=== PATIENT | male | born 1980 ===

== ENCOUNTER 2024-08-30 13:34 | Emergency (ER) | payer MEDICAID, SELFPAY ==
--- NOTE | ~2024-08-30 | XR_ITS ---
EXAMINATION: XR FOOT, RIGHT CLINICAL INFORMATION: medial tenderness COMPARISON: No prior. TECHNIQUE: AP, lateral, and oblique views of the right foot. FINDINGS: No fracture, dislocation, or suspicious bone lesion. Normal bone mineralization. Normal alignment. Joint spaces are preserved. Mild dorsal spurring of the intertarsal joints. Mild medial soft tissue swelling, particularly involving the midfoot. No soft tissue gas. XR/XR foot RT min 3V IMPRESSION: 1. No acute bony abnormalities. 2. Mild medial soft tissue swelling particularly overlying the midfoot. Electronically signed by: Minh Gay MD 08/30/2024 02:36 PM EDT
--- NOTE | ~2024-08-30 | XR_ITS ---
EXAMINATION: XR ANKLE, RIGHT CLINICAL INFORMATION: medial swelling and tenderness COMPARISON: None available. TECHNIQUE: AP, lateral, and mortise views of the right ankle. FINDINGS: Malposition of the AP and oblique views. No acute cortical disruption or malalignment. No lytic or blastic lesion. No subcutaneous emphysema. XR/XR ankle RT 2V IMPRESSION: No acute fracture or dislocation. Negative exam.] Electronically signed by: George Downs MD 08/30/2024 02:22 PM EDT
[2024-08-30 13:38] VITALS: BP 130/86; PULSE 83; RESP 20; TEMP 37; O2SAT 96; BMI 33.1
--- NOTE | 2024-08-30 13:40 | ED.GENADULT ---
HPI - General Adult General Chief complaint: Extremity Injury, Lower Stated complaint: twisted r ankle Time Seen by Provider: 08/30/24 14:07 Source: patient, RN notes reviewed and old records reviewed Mode of arrival: ambulatory Limitations: no limitations History of Present Illness ED Provider: Mae HPI narrative: Patient is a 44-year-old male presenting with complaint of right foot and ankle pain after slipping while walking down a hill by his house yesterday. Able to bear weight. Pain and swelling to medial foot and ankle. Denies numbness or tingling. complaint: ankle pain Onset (ago): day(s) Related Data Allergies Allergy/AdvReac Type Severity Reaction Status Date / Time MUSCLE RELAXER Allergy Unknown RASH Uncoded 08/30/24 13:40 Review of Systems Review of Systems: As per HPI Yes all other systems are reviewed and are negative Constitutional: Constitutional: Reports as per HPI Physical Exam ED Vital Signs: Vital Signs - 24 hr 08/30/24 13:38 Temperature 98.6 F Pulse Rate 83 Respiratory Rate 20 Blood Pressure 130/86 Pulse Oximetry 96 Oxygen Delivery Method Room Air BMI result Body Mass Index 33.1 Vital signs have been reviewed and appear to be correct. Blood pressure normal. Heart rate normal. Respiratory rate normal. Temperature normal. Oxygen saturation normal. Const General: cooperative, healthy appearing and no acute distress Orientation/consciousness: oriented to person, oriented to place, oriented to time and patient oriented x3 Limitations: no limitations HENMT Head: Yes normocephalic and Yes atraumatic Ears: external ears normal General nose exam: Normal external nose present Face and sinus: Yes face symmetric Mouth: oropharynx normal and moist mucous membranes Throat: Yes uvula midline Eyes Pupils: Equal, round and reactive pupils present Neck Neck: Yes normal visual inspection and Yes supple Resp Effort & Inspection: normal respiratory effort and able to speak in complete sentences Auscultation: clear to auscultation bilaterally Cardio Rate: regular rate Rhythm: regular rhythm Heart sounds: S1 normal heart sound present and S2 normal heart sound present GI Palpation (GI): Soft to palpation and nontender Auscultation: normoactive bowel sounds General: Yes no CVA tenderness Back/Spine/Pelvis Back: no CVA tenderness Skin General skin exam: elasticity normal and turgor normal Neuro General: oriented to person, oriented to place, oriented to time, patient oriented x3, moves all extremities, no focal motor deficits and CN's II-XI intact bilaterally Cranial nerves: Yes Equal, round and reactive pupils present Cognition (Neuro): normal cognition Extrem General: Yes full ROM, Yes no pedal edema and Yes no calf tenderness Right lower extremity: ankle Details: tenderness Location: of the medial malleolus, swelling Details: medially and normal ROM; no unusual warmth and no ecchymosis and foot Details: normal capillary refill, tenderness Location: of the dorsal foot Location: medially, toes with normal ROM and vascular exam Details: dorsalis pedis pulse present, posterior tibial pulse present and normal capillary refill; no ecchymosis Psych Mental Status: mental status grossly normal Affect: normal affect Thought process: Normal thought process present Course Course Course Narrative: This is a rapid medical exam performed by Leeanna Wall NP: Additional HPI, ROS, PE not included below will be deferred to primary provider. Patient is a 44-year-old male presenting with complaint of right foot and ankle pain after slipping while walking down a hill by his house yesterday. Able to bear weight. Plan: xrays Medical Decision Making Medical Decision Making [facility] Narrative: Patient is a 44-year-old male presenting with complaint of right foot and ankle pain after slipping while walking down a hill by his house yesterday. On exam patient is awake, A+Ox3, VS WNL, afebrile, normal neurological exam without focal deficits, physical exam findings as above. Given reported symptoms and physical exam findings, initial differential includes but is not limited to strain, sprain, fracture, dislocation. X-ray notable for no acute fracture to right foot or ankle. My interpretation is in agreement with the radiologist's interpretation. Results discussed with patient and all questions answered. Patient placed in air splint, advised Tylenol and ibuprofen as needed for pain, elevate foot while at rest, ice intermittently. Will refer to ortho for ongoing symptoms. Return precautions discussed. Patient verbalized understanding of and agreement with plan. Differential Diagnosis Differential Diagnoses: The differential diagnosis associated with the presentation includes As per MDM Admission/Observation Consideration of admission/observation: Escalation of care including admission/observation considered Patient would have been admitted to the hospital had their work up had any findings where hospital admission was appropriate and their clinical presentation warranted hospital admission. Independent Interpretation I performed an independent interpretation of an: Plain X-Ray Interpretation: No acute fracture right foot or ankle Radiology Impression Discussion of test interpretation with radiology: I have reviewed the radiologist's reading. Radiologist Impression: XR/XR ankle RT 2V IMPRESSION: No acute fracture or dislocation. Negative exam.] XR/XR foot RT min 3V IMPRESSION: 1. No acute bony abnormalities. 2. Mild medial soft tissue swelling particularly overlying the midfoot. External Record Review External record reviewed: Inpatient record, Office record and Outpatient record Discharge Plan Discharge Clinical Impression: Right ankle sprain Patient Disposition: Home, Self-Care Instructions: Ankle Sprain (DC), Ankle Stirrup Splint (ED), R.I.C.E. Treatment (ED) Additional Instructions: You have been evaluated in the emergency department today for ankle pain. Your evaluation did not find evidence of medical conditions requiring emergent intervention at this time. We have provided a splint for you to use while your ankle heals. Please rest, ice, and elevate your ankle/foot, and resume normal activities as tolerated. We recommend you take 600mg ibuprofen every 6 hours or 650mg Tylenol every 6 hours as needed for pain. If needed you can alternate these medications as they take 1 medication every 3 hours. For instance at noon take ibuprofen, then at 3:00 p.m. take Tylenol, then at 6:00 p.m. take ibuprofen. Please schedule an appointment for follow-up with your primary care provider this week. Return to the emergency department if you experience worsening pain, numbness, tingling, change of color in your foot, or any other concerning symptoms. If your pain persists beyond the next 1-2 weeks, follow up with orthopedics. Referrals: [facility] Surgeons [Provider Group] Print Language: Choose Not To Answer
[2024-08-30 15:15] VITALS: BP 130/86; PULSE 83; RESP 20; TEMP 37; O2SAT 96
--- OUTSIDE RECORDS SUMMARY | 2024-08-30 17:56 | XMS_ITS | Clinical Summary ---
Author Organization [facility] Address [address] [place] [address] Care Team Providers Care Vascular Tech Name Role Phone Perico Barrios MD Primary Care Provider [phone] Source Comments PLEASE NOTE, if this patient is a minor, it may be UNLAWFUL to discuss sensitive information that is contained in these records (such as FAMILY PLANNING, MENTAL HEALTH or SUBSTANCE ABUSE) with the minor patient's parent or other person without the patient's specific authorization.[facility] Allergies Active Allergy Reactions Criticality Noted Date Comments Capsaicin 09/29/2017 Medications cetirizine (ALLERGY RELIEF, CETIRIZINE,) 10 mg tabletIndication s:URI (upper respiratory infection) Take 1 Tab by mouth once daily. 10 Tab 0 4 Active nicotine (NICODERM CQ) 21 mg/[address] 1 Patch onto the skin once daily (every 24 hours). 28 Patch 0 4 Active fluticasone (FLONASE) 50 mcg/actuation nasal sprayIndications :Allergic rhinitis, seasonal Place 1 [place] into the nostril(s) once daily. 16 g 1 4 Active aluminum & magnesium hydroxide-simeth icone (MAALOX PLUS) 400-400-40 mg/5 mL suspension Take 15 mL by mouth 3 (three) times daily as needed for indigestion. 240 mL 0 4 Active carbamide peroxide (DEBROX) 6.5 % otic solution Place 5 Drops into both ears 2 (two) times daily 15 mL 1 8 Active dorzolamide-hannah lol (COSOPT) 22.3-6.8 mg/mL ophthalmic solution INSTILL 1 DROP IN THE RIGHT EYE BID 1 9 Active ketorolac (ACULAR) 0.5 % ophthalmic solution INSTILL 1 DROP INTO RIGHT EYE QID 2 9 Active prednisoLONE acetate (PRED FORTE) 1 % ophthalmic suspension PLACE 1 DROP INTO THE RIGHT EYE QID 2 9 Active acetaminophen (TYLENOL) 500 mg tabletIndication s:Hypotension, unspecified hypotension type Take 1 Tab by mouth every 6 (six) hours as needed for pain 60 Tab 0 Active phenyleph-pramox in-glycr-w.pet (PREPARATION H) 0.25-1 % rectal creamIndications :External hemorrhoid Place rectally 4 (four) times daily as needed for hemorrhoids 26 g 1 1 Active PROAIR HFA 90 mcg/actuation inhalerIndicatio ns:Mild intermittent asthma without complication ([facility]) INHALE 2 PUFFS INTO THE LUNGS EVERY 6 HOURS NEEDED 17 g 11 3 Active furosemide (LASIX) 20 mg tabletIndication s:Bilateral leg edema Take 1 Tablet by mouth once daily for 60 days 30 Tablet 1 4 Active ibuprofen 800 mg tabletIndication s:Left ankle pain, unspecified chronicity TAKE 1 TABLET BY MOUTH THREE TIMES DAILY NEEDED FOR PAIN 60 Tablet 1 4 Active Hospital, Clinic, or Other Facility Administered Medication Ordered Dose Route Frequency Start Date End Date Status carbamide 6.5 % drop 2 Drop otic solution (Ordered as: Ear Drops)Indications:Bilateral impacted cerumen 2 Drop otic As needed 04/20/2017 Active Active Problems Problem Noted Date Diagnosed Date Bilateral leg edema 09/05/2023 Overview (09/05/2023): Seen [facility] 08/31/23 Bilateral leg swelling x2 weeks, worsened over the last 2 days. No shortness of breath, no tenderness to the skin itself, and no weeping from the legs. Ultrasound, reviewed radiologist's report, reveals no acute disease process. proBNP was negative, and liver function testing ,CBC and COMP was normal. Elevated LDL cholesterol level 06/24/2020 History of retinal detachment 05/08/2018 Overview (05/08/2018): S/P Surgery March 2018 in [place] Right eye . Retinal detachment of right eye with presence of subretinal fluid 03/27/2018 Legally blind in left eye, as defined in [place] H. pylori infection 11/21/2013 Allergic rhinitis, seasonal 11/15/2013 GERD (gastroesophageal reflux disease) 4 Mild intermittent asthma without complication ([facility]) 04/30/2013 Insomnia 04/30/2013 Ptosis 04/30/2013 Smoker 04/30/2013 Resolved Problems Problem Noted Date Diagnosed Date Resolved Date Hypotension 09/03/2019 06/19/2020 URI (upper respiratory infection) 08/16/2013 05/08/2018 Labyrinthitis, viral 08/16/2013 014 Cerumen impaction 04/30/2013 05/08/2018 Leukocytosis 04/30/2013 02/18/2023 Immunizations Immunization Administration Dates Next Due Flu, Cell Culture based, Mul ti Dose, 6m+, Flucelvax 06/13/2019 Flu, Preservative Free 01/01/2022,06/23/2020, INFLUENZA, SEASONAL, INJECTABLE 04/30/2013 PNEUMOCOCCAL POLYSACCHARIDE PPV23 06/23/2020 TDAP 11/29/2018 Social History Tobacco Use Types Packs/Day Years Used Date Smoking Tobacco: Every Day Cigarettes Passive Smoke Exposure: Never Smokeless Tobacco: Never Tobacco Cessation:Ready to Q uit: No; Counseling Given: Yes Comments:1-5 cigarettes per day Alcohol Use Standard Drinks/Week Comments Not Currently 0 (1 standard drink = 0.6 oz pur e alcohol) sometimes Social Connections Answer Date Recorded Connectedness 2 10/21/2023 Financial Resource Strain Answer Date R ecorded Financial Resource Strain 2 2023 Stress Answer Date Recorded Stress 1 10/21/2023 Physical Activity Answer Date Recorded Physical Activity 0 01/06/2019 Food Insecurity Answer Date Recorded Food 2 10/21/2023 Transportation Needs Answer Date Record ed Transportation 1 10/21/2023 Housing Stability Answer Date Recorded Housing 2 10/21/2023 Safety and Environment Answer Date Felix rded Safety 1 10/21/2023 Utilities Answer Date Recorded Utilities 2 10/21/2023 Employment Answer Date Recorded Employment 0 01/06/2019 Sex and Gender Information Value Date Recorded Sex Assigned at Male 03/28/2017 9:36 AM PST Legal Sex Male 11:36 AM PDT Gender Identity Male 03/28/2017 9:36 AM PST Sexual Orientation Straight 03/28/2017 9: 36 AM PST Last Filed Vital Signs Vital Sign Reading Time Taken Comments Blood Pressure 126/72 11/18/2023 1:35 PM EDT Pulse 84 11/18/2023 1:35 PM EDT Temperature 36.9 ??C (98.4 ??F) 11/18/2023 1:35 PM ED T Respiratory Rate 16 11/18/2023 1:35 PM EDT Oxygen Saturation 99% 11/18/2023 1:35 PM EDT Inhaled Oxygen Concentration - - Weight 105.2 kg (232 lb) 11/18/2023 1:35 PM EDT Height 162.6 cm (5' 4 ) 11/18/2023 1:35 PM EDT Body Mass Index 39.82 11/18/2023 1:35 PM EDT Plan of Treatment Health Maintenance Due Date Last Done Comments Anxiety Screening 1981 LTBI Screening (#1) 1981 Imm-Hepatitis A (1 of 2 - Ri sk 2-dose series) 01/10/2000 Imm-Hepatitis B (1 of 3 - 19 + 3-dose series) 01/10/2000 Annual Preventive Care Visit 06/23/202112/2020, 11/29/2018, 03/28/2017 Imm-Pneumococcal (2 of 2 - PCV) 06/23/2021 Lipid Screening 06/23/2023 06/23/2020, 11/29/2018 [id number] ( season) 2024 Imm-Influenza (#1) 2024 01/01/2022, 0 06/23/2020, 06/13/2019, Additional history exists Depression Monitoring 01/21/2024 10/21/2023 , 09/07/2023, 12/17/2022, Additional history exists Alcohol and Drug Screen 05/16/2024 10/21/19 24, 09/07/2023, 12/17/2022, Additional history exists Hypertension Screening (#1) 11/17/2024 Tobacco Cessation Counseling (#1) 11/17/2024 024, 06/23/2020 Diabetes Screening 10/20/2026 10/21/2023, 0 06/23/2020, 11/29/2018, Additional history exists Imm-DTaP/Tdap/Td (2 - Td or Tdap) 11/29/2028 019 HIV Screening Completed 11/29/2018 Hepatitis C Screening Completed 06/23/2020 Procedures Procedure Name Priority Date/Time Associated Diagnosis Comments COMPREHENSIVE METABOLIC PANEL Routine 10/21/2023 3:54 PM EDT Bilateral leg edema HEPATITIS C ANTIBODY Routine 06/23/2020 11:15 AM EST Health care maintenance LIPID PANEL Routine 06/23/2020 11:15 AM EST Routine general medical examination at a health care facility Other hyperlipidemia ANTIBODY HIV-1&HIV-2 SINGLE RESULT Routine 11/29/2018 1:32 PM EDT Health care maintenance from Last 3 Months or Most Recently Relevant to Health Maintenance Results * COMPREHENSIVE METABOLIC PANEL (10/21/2023 3:54 PM EDT) GLUCOSE 82 65 - 99 mg/dL [facility] Comment: ?Fasting reference interval UREA NITROGEN (BUN) 14 7 - 25 mg/dL [facility] CREATININE (blood) 1.02 0.60 - 1.29 mg/dL [facility] EGFR 94 > OR = 60 mL/min/1. 73m2 [facility] BUN/CREATININE RATIO SEE NOTE: [facility] Comment: ?? Not Reported: BUN and Creatinine are within ?? reference range. ? SODIUM 142 135 - 146 mmol/L [facility] POTASSIUM 4.0 3.5 - 5.3 mmol/L [facility] CHLORIDE 104 98 - 110 mmol/L [facility] CARBON DIOXIDE 32 20 - 32 mmol/L [facility] CALCIUM 9.4 8.6 - 10.3 mg/dL [facility] PROTEIN, TOTAL 6.2 6.1 - 8.1 g/dL [facility] ALBUMIN 3.9 3.6 - 5.1 g/dL [facility] GLOBULIN 2.3 1.9 - 3.7 g/dL (calc) [facility] ALBUMIN/GLOBULI N RATIO 1.7 1.0 - 2.5 (calc) [facility] BILIRUBIN, TOTAL 0.7 0.2 - 1.2 mg/dL [facility] ALKALINE PHOSPHATASE 61 36 - 130 U/L [facility] AST 13 10 - 40 U/L [facility] ALT 10 9 - 46 U/L [facility] Blood Blood / Unknown 10/21/2023 3 :54 PM EDT 10/21/2023 3:54 PM EDT Rachna MICHAEL LAB - BLOOD DRAW Edited Result - Final Performing Organization Address City/[facility]/ZIP Co de Phone Number [facility] [address] [address], [facility] [address] [address] * HEPATITIS C ANTIBODY (06/23/2020 11:15 AM EST) Pathologist [facility] HEPATITIS C VIRUS SCREEN NEGATIVE NEGATIVE [facility] Blood Blood / Unknown 06/23/2020 1 1:15 AM EST 06/23/2020 1:22 PM EST Narrative [facility] - 06/23/2020 9:37 PM EST [facility] [employer], a member of [address] [address] Ophthalmic Nurse - Linda Landis MD PT ID [id number] ORD# [id number] Perico Barrios MD LAB - BLOOD DRAW Final Result [address] [address], * (ABNORMAL) LIPID PANEL (06/23/2020 11:15 AM EST) Pathologist [facility] TRIGLYCERIDES 140 0 - 150 mg/dL [facility] LDL CALCULATED 122(H) 0 - 100 mg/dL [facility] Blood Blood / Unknown 06/23/2020 1 1:15 AM EST 06/23/2020 1:22 PM EST [facility] - 06/23/2020 8:54 PM EST Melody Villatoro, a member of [address] [address] Ophthalmic Nurse - Linda Landis MD PT [place] [id number] ORD# [id number] Perico Barrios MD LAB - BLOOD DRAW Edited Result - Final [address] [address], [place] [phone] * HIV-1 & HIV-2 ANTIBODIES (11/29/2018 1:32 PM EDT) [facility] HIV 1 AND 2 ANTIBODY SCREEN NEGATIVE NEGATIVE [facility] Comment: This assay is a 4th generation assay allowing for earlier detection of HIV infection by detecting the presence of the HIV-1 p24 antigen as well as the traditional antibodies to HIV type 1 (including group O) and type 2. ??Use of a 4th generation assay is the current CDC recommendation for HIV screening. Blood specimen (specimen) Blood / Unknown 11/29/2018 1:32 PM EDT 11/29/2018 1:47 PM EDT [facility] - 11/29/2018 7:26 PM EDT [facility] Villatoro, [place] [address] Ophthalmic Nurse - Marely Crane MD [place] [id number] ORD# [id number] Perico Barrios MD LAB - BLOOD DRAW Final Result Performing Organization Address City/[facility]/ZIP Co de Phone Number [address] [address], [place] [phone] from Last 3 Months or Most Recently Relevant to Health Maintenance Insurance [place] MED[place] DENTAL [employer] [employer] S[employer] NET DENTAL [address] [employer] Care Teams Vascular Tech Relationship Specialty Start Date End Date Perico Barrios MD [address] [place] [address] PCP - General Internal Medicine 06/10/17
== END 2024-08-30 15:16 | disposition home or self-care (01) ==
PROVIDERS: Emergency Provider Emergency Medicine; PCP Dentist General Practice
DX: S93.401A Sprain of unspecified ligament of right ankle, initial encounter (principal); W17.81XA Fall down embankment (hill), initial encounter; Y93.9 Activity, unspecified; M25.571 Pain in right ankle and joints of right foot; Y92.89 Other specified places as the place of occurrence of the external cause; Y99.9 Unspecified external cause status
CPT/HCPCS: 73600; 73630; 99283

== ENCOUNTER → 2024-08-30 13:41 | Outpatient (BNV) | payer MEDICAID, SELFPAY | PROVIDERS: Emergency Provider Emergency Medicine; Visit Provider Radiology Diagnostic Radiology | DX: M70.871 Other soft tissue disorders related to use, overuse and pressure, right ankle and foot (principal) | CPT/HCPCS: 73610; 73630 ==